=== PATIENT | female | born 1990 | race Caucasian/White ===

== ENCOUNTER 2019-11-09 09:55 | Inpatient (IN) | payer SELFPAY ==
[2019-11-09] VITALS (15 sets, daily range): BP systolic 93–113; BP diastolic 43–86; PULSE 60–80; RESP 15–18; TEMP 36.3–37.2; O2SAT 95–99; BMI 24.6
[2019-11-09] MEDS: Lactated Ringers 1,000 ML 999 ML IV (10:15)
[2019-11-09 10:40] LABS: Absolute Lymphocyte Count 1.73 X10^3/uL (0.83-4.51); Absolute Neutrophil Count 4.9 X10^3/uL (2.0-7.7); Basophil# 0.03 X10^3/uL; Basophil% 0.4 % (0-1); Eosinophil# 0.03 X10^3/uL; Eosinophils% 0.4 % (0-5); Hematocrit 36.4 % (37-47); Hemoglobin 13.3 g/dL (12.0-15.0); Lymphocyte # 1.73 X10^3/ul (4.0); Lymphocyte % 23.9 % (19-41); Mean Corp Hgb Conc 36.5 g/dL (32-36); Mean Corpuscular Hgb 33.3 pg (27.0-32.0); Mean Corpuscular Volume 91.2 fL (81-99); Mean Platelet Vol. 9.9 fl (6.2-12.0); Monocyte# 0.53 X10^3/uL; Monocyte% 7.3 % (0-10); NRBC Flagged by Analyzer 0 % (0-5); Neutrophil # 4.88 X10^3/uL (2.7-7.7); Neutrophil % 67.4 % (47-70); Platelet Count 289 K/mm3 (150-450); RBC Distribution Width CV 12.7 % (11.6-14.6); RBC Distribution Width SD 41.5 fl (35.1-43.9); Red Blood Count 3.99 M/mm3 (4.2-5.4); White Blood Count 7.2 K/mm3 (4.4-11.0)
[2019-11-09] MEDS: Sodium Citrate/Citric Acid 30 ML UDC PO (11:48)
[2019-11-09] MEDS: Lactated Ringers 1,000 ML 150 ML IV (11:49)
[2019-11-09] MEDS: Cefazolin 2 GM in 0.9% Normal Saline 100 ML IV (12:13)
--- NOTE | 2019-11-09 13:16 | PCM.HP.OB ---
History Date of Admission: 11/09/19 Final PEPE: 11/16/19 Gestational age: 39 Weeks and 0 Days History of this : This is a 29 year-old, G [], P [], at 39 weeks gestational age. Surgical History: Surgical History (Last Updated 11/09/19 @ 13:[address] Eli Hoang MD) Hx laparoscopic cholecystectomy Z90.49 Previous section Z98.891 Allergies No Known Allergies Allergy (Verified 11/28/15 18:27) Home Medications: Home Medications Laura [place]/Linoleic/Gamoleni [Evening [place] 1,000 mg Sftg] 1,000 mg PO BID 11/09/19 L.acidoph,Paracasei, B.lactis [Probiotic] 1 ea PO QODAY 11/09/19 Vits [Prenatabs FA] 1 tab PO DAILY 11/09/19 Smoking Status: Never smoker Alcohol: None Number of Fetus(es): 1 History Past Pregnancies: Past Pregnancies Delivery Date Name GA/ Weeks Outcome Route Wt Sex Labor Length Anesthesia Delivery Location Provider FOB Labs: See [facility] H[facility] Physical Exam Vitals: Vital Signs Pulse BP 71 107/62 11/09/19 11:16 11/09/19 11:16 General: Alert, Oriented x3 Abdomen: Soft, Non Tender, Non-Distended Neurological: Cranial nerves II-XII grossly intact INSTRUCTIONAL DESIGN CONSULTANT: Normal external genitalia Estimated gestational size: Appropriate for gestational size Assessment/Plan All Active Problems Abdominal pain (Acute) Pancreatitis (Ruled-out) This is a 29 year-old, G2, P1001, at 39 weeks gestational age. Admit to L&D Proceed with repeat Routine care
--- NOTE | 2019-11-09 13:20 | PCM.OPRPT ---
Report of Operation Surgery/Procedure Performed:: Repeat section Description of Surgical Findings:: Bicornuate uterus, normal adnexa Delivery Classification: Scheduled Final PEPE: 11/16/19 Gestational age: 39 Weeks and 0 Days sulfonation equipment operator: Matthew Underwood Type of Anesthesia:: Spinal Date of Procedure: 11/09/19 Pre-Operative Diagnosis: (1) Prior section (2) Bicornuate uterus Post-Operative Diagnosis: Same Indications for : Repeat Elective Description of Procedure: Patient taken to OR where spinal anesthesia was placed. She was prepped and draped in the normal sterile fashion in a dorsal supine position with a leftward tilt. After ensuring adequacy of anesthesia the Pfannensteil skin incision was made and carried through to the underlying fascia with a scalpel. The fascia was incised in the midline and carried laterally with the Talamantes scissors. The rectus muscles were in the midline and the peritoneum was entered bluntly. The bladder flap was dissected down carefully with the Metzenbaum scissors and blunt dissection. The uterus was incised in a transverse fashion and then incision extended with cephalocaudad traction. The fetus was vertex and the head was elevated to the uterine incision. With fundal pressure the head delivered. head was gently guided to allow delivery of anterior and posterior shoulders. No excess traction placed on head. Body delivered and 3VC clamped & cut in delayed fashion. Then the infant was handed off to the waiting RN. The placenta was delivered with gentle traction and fundal massage and the uterus was exteriorized and cleared of all clots and debris. The uterine incision was closed with 1 vicryl suture in a running locked fashion. The bovie was used to further obtain further hemostasis of the uterine incision. A second imbricating layer of monocryl was placed. The uterus was returned to the peritoneal cavity. The pelvis was irrigated & then cleared of all clots and debris. The uterine incision was examined and found to be hemostatic. Some asa was placed over the uterine incision due to the denuded areas. The fascia was closed with looped PDS suture in a running standard. The subcutaneous tissue was examined & any bleeding bovie cauterized. The subcutaneous tissue was reapproximated. The skin was closed in a subcuticular fashion by the MILK AND CREAM GRADER with me present in the labor and delivery suite. I performed the remainder of the procedure w/ assistance. Amniotic Membrane Rupture Type: Artificial Amniotic Fluid Description: Clear Placenta Disposition: [facility] Drain: [place] to straight drain Fluids Replaced: 1100ml Cord Entanglement: None Cord Vessel Description: 3 Vessels Esitmated Blood Loss (ml): 700ml Gender: Male - Jose; weight = 7-6 (1 minute): 9 (5 minute): 9 Delayed cord clamping: Yes Antibiotic Given: Ancef 2 grams IV x1 Complications: None - Admit VTE Documentation VTE Present on Admission: No
[2019-11-09] MEDS: Oxytocin 30 units/NS 500 ml 30 UNITS/500 ML IV.SOLN 167 UNITS IV (13:30)
[2019-11-09] MEDS: Lactated Ringers 1,000 ML 100 ML IV (14:43)
[2019-11-09] MEDS: Ketorolac 30 MG/ML Syringe IV (18:17)
[2019-11-09] MEDS: 0.9% Saline Lock 10 ML Syringe IV (18:17)
[2019-11-10] VITALS (9 sets, daily range): BP systolic 91–104; BP diastolic 54–61; PULSE 72–80; RESP 14–18; TEMP 36.6–37.1; O2SAT 96–98
[2019-11-10] MEDS: Ketorolac 30 MG/ML Syringe IV ×5 (00:20→23:57)
[2019-11-10 05:41] LABS: Hematocrit 29.9 % (37-47); Hemoglobin 10.1 g/dL (12.0-15.0); Mean Corp Hgb Conc 33.8 g/dL (32-36); Mean Corpuscular Hgb 31.4 pg (27.0-32.0); Mean Corpuscular Volume 92.9 fL (81-99); Mean Platelet Vol. 9.3 fl (6.2-12.0); Platelet Count 202 K/mm3 (150-450); Red Blood Count 3.22 M/mm3 (4.2-5.4); White Blood Count 9.6 K/mm3 (4.4-11.0)
[2019-11-10 05:56] LABS: Scan Indicated on CBC? Y/N NO
--- NOTE | 2019-11-10 10:39 | PN.OBGYN_ITS ---
Subjective: Patient seen at bedside. Resting in bed skin to skin with infant. Reports feeling well, pain under control and has been ambulating in room. infant and having some issues with latching and keeping awake. Seen by yesterday and will see again today. Voiding without difficulty. No concerns to report at this time. - Physical Exam Vitals/I&O's: Vital Signs Temp Pulse Resp BP Pulse Ox 97.8 F 73 16 104/61 97 11/10/19 08:00 11/10/19 08:00 11/10/19 08:00 11/10/19 08:00 11/10/19 08:00 Oxygen Delivery Method Room Air Weight: 148 lb Body Mass Index (BMI) 24.6 Intake and Output for Last 24 Hours 11/08/19 11/09/19 11/10/19 23:59 23:59 23:59 Intake Total 3589.83 / 3589.83 1721.67 / 1721.67 Output Total 1725 / 1725 2200 / 2200 Balance 1864.83 / 1864.83 -478.33 / -478.33 General: Alert, Cooperative Oral: Moist Mucosa Neck: Supple Lungs: Normal air movement Abdomen: Bowel Sounds Present, Soft Neurological: Cranial nerves II-XII grossly intact Psych/Mental Status: Normal Affect, Appropriate Comment: Mepilax dressing dry and intact Laboratory Results 11/09/19 10:15: WBC 7.2, RBC 3.99 L, Hgb 13.3, Hct 36.4 L, MCV 91.2, MCH 33.3 H, MCHC 36.5 H, RDW Std Deviation 41.5, RDW Coeff of Norberto 12.7, Plt Count 289, MPV 9.9, Immature Gran % (Auto) 0.600, Neut % (Auto) 67.4, Lymph % (Auto) 23.9, Griggs % (Auto) 7.3, Eos % (Auto) 0.4, Baso % (Auto) 0.4, Absolute Neuts (auto) 4.9, Absolute Lymphs (auto) 1.73, Nucleated RBC % 0 11/09/19 10:15: Blood Type B NEGATIVE, Antibody Screen NEGATIVE 11/10/19 05:25: WBC 9.6, RBC 3.22 L, Hgb 10.1 L, Hct 29.9 L, MCV 92.9, MCH 31.4, MCHC 33.8 D, RDW Std Deviation 43.0, RDW Coeff of Norberto 13.0, Plt Count 202, MPV 9.3 Current Medications Acetaminophen (Tylenol) 1,000 mg PO Q8H PRN PRN Reason: Pain Score 1-3/10 Bisacodyl (Dulcolax) 10 mg RECTAL UD PRN PRN Reason: If no BM Diphenhydramine HCl (Benadryl) 25 mg PO Q6H PRN PRN PRN Reason: ITCHING Stop: 11/10/19 13:43 Hydrocortisone (Hytone) 1 applic TOPICAL TID PRN PRN; Protocol PRN Reason: Discomfort Lactated Ringer's () 1,000 mls @ 100 mls/hr IV .Q10H [facility] Last Infusion: 11/10/19 06:03 Dose: Infused Documented by: Naloxone HCl 4 mg/ Dextrose 504 mls @ 0 mls/hr IV .Q0M PRN; Protocol PRN Reason: Respiratory depression Naloxone HCl 4 mg/ Dextrose 504 mls @ 0 mls/hr IV .Q0M PRN; Protocol PRN Reason: To maintain Resp. rate >10 Ibuprofen (Motrin) 600 mg PO Q6H PRN PRN PRN Reason: Pain Score 1-3/10 Ketorolac Tromethamine (Toradol (Bkc)) 30 mg IV Q6 BRENAD Stop: 11/11/19 12:01 Last Admin: 11/10/19 06:00 Dose: 30 mg Documented by: Methylergonovine Maleate (Methergine) 0.2 mg IM X1 PRN PRN Reason: Uterine Atony Nalbuphine HCl (Nubain) 5 mg IV Q3H PRN PRN PRN Reason: ITCHING Stop: 11/10/19 13:43 Naloxone HCl (Narcan) 0.02 mg IV Q1M PRN PRN Reason: RR <10 and pt unresponsive Ondansetron HCl (Zofran) 4 mg IV Q4H PRN PRN PRN Reason: Nausea Oxycodone HCl (Oxyir) 5 - 10 mg PO Q4H PRN PRN PRN Reason: Pain Score 4-10/10 Prochlorperazine Edisylate (Compazine Iv) 10 mg IV Q6H PRN PRN PRN Reason: NAUSEA Senna/Docusate Sodium (Senokot-S, Brynn-Colace) 0 tablet PO DAILY PRN PRN Reason: Constipation Simethicone (Mylicon) 80 mg PO PCHS PRN PRN Reason: Indigestion/stomach pain Sodium Chloride () 5 - 15 ml IV UD PRN PRN Reason: SALINE FLUSH Last Admin: 11/09/19 18:17 Dose: 10 ml Documented by: Medical Necessity - Tobacco Use Smoking Status: Never smoker Assessment/Plan All Active Problems (Last Updated 11/09/19 @ 13:[address] Eli Hoang MD) Abdominal pain (Acute) Pancreatitis (Ruled-out) PPD #1, Repeat C/S Pain management support Routine care
[2019-11-10] MEDS: 0.9% Saline Lock 10 ML Syringe IV ×3 (12:09→23:58)
[2019-11-10] MEDS: Senna/Docusate Sodium 1 Tablet PO (18:19)
[2019-11-11 01:56] VITALS: BP 102/65; PULSE 68; RESP 16; TEMP 36.6
--- NOTE | 2019-11-11 04:06 | DCINST_ITS ---
Discharge Diet: No Restrictions Discharge Activity: May not drive while taking narcotic pain medications., May Shower May resume sexual activity in: 6 weeks Weight Bearing Status: Weight bearing as tolerated Call your doctor if your incision/area has: Continuous Slow Oozing, Sudden Increased Bleeding, Increased Pain/ Swelling, Increased Redness, Foul Smelling Discharge, Swelling at the incision site Suture Line Care: Avoid Pulling/Pushing Cleanse incision/area with: Soap & Water Additional Instructions: If you experience any of the following, contact your healthcare provider. * Bleeding that soaks a pad every hour for 2 hours * Fever 100.4 or higher * Unrelieved incision or abdominal pain * Swelling, redness, discharge or bleeding from your incision or epi siotomy site * Your incision begins to separate * Problems urinating (including inability to urinate or burning while urinating). * Visual changes * Severe headache * Flu-like symptoms * Pain or redness in one of both of your breasts * Pain, warmth, tenderness or swelling in your legs, especially the calf area * Frequent nausea and vomiting * Symptoms of depression or anxiety If you experience any of the following, call 911 or go to the nearest Emergency Room. * Chest pain * Problems breathing * Seizure activity * Partial or complete paralysis of a body part, slurred speech, weakness or drooping of the face, or a sudden inability to walk or hold your balance Allergies/Adverse Reactions: Allergies No Known Allergies Allergy (Verified 11/28/15 18:27) Medications to take at Discharge Laura [place]/Linoleic/Gamoleni [Evening [place] 1,000 mg Sftg] 1,000 mg PO BID 11/09/19 L.acidoph,Paracasei, B.lactis [Probiotic] 1 ea PO QODAY 11/09/19 Vits [Prenatabs FA ] 1 tab PO DAILY 11/09/19 Acetaminophen [Tylenol] 1,000 mg PO Q8H PRN tab 11/11/19 Ibuprofen [Motrin] 600 mg PO Q6H PRN PRN tab 11/11/19 Oxycodone [Oxyir] 5 mg PO Q6H PRN PRN 3 Days #12 tab 11/11/19 Senna/Docusate Sodium [Senokot-S] 1 tab PO DAILY PRN tablet 11/11/19 The following prescriptions were given: Oxycodone [Oxyir] 5 mg PO Q6H PRN PRN 3 Days #12 tab PRN Reason: Pain Score 4-10/10 Transmission Status: Received by [facility] Follow-Up: Call to make an appointment with your doctor for an incision check in 1-2 weeks. You will also need a 6 week post- follow up appointment. Test results from this visit will be discussed in further detail at your follow- up appointment, if applicable. Primary Care Physician: Rudy Blank DO [Primary Care Provider] -
--- NOTE | 2019-11-11 04:08 | PCM.PN.OB ---
Subjective: Pain controlled - Physical Exam Vitals/I&O's: Vital Signs Temp Pulse Resp BP Pulse Ox 97.9 F 68 16 102/65 96 11/11/19 01:56 11/11/19 01:56 11/11/19 01:56 11/11/19 01:56 11/10/19 16:20 Oxygen Delivery Method Room Air Weight: 148 lb Body Mass Index (BMI) 24.6 Intake and Output for Last 24 Hours 11/09/19 11/10/19 11/11/19 23:59 23:59 23:59 Intake Total 3589.83 / 3589.83 1721.67 / 1721.67 Output Total 1725 / 1725 3000 / 3000 Balance 1864.83 / 1864.83 -1278.33 / -1278.33 General: Alert, Oriented x3 Abdomen: Soft, Non Tender, Non-Distended - ff mid & below umb Extremities: No Calf Tenderness Neurological: Cranial nerves II-XII grossly intact Psych/Mental Status: Normal Affect Laboratory Results 11/10/19 05:25: WBC 9.6, RBC 3.22 L, Hgb 10.1 L, Hct 29.9 L, MCV 92.9, MCH 31.4, MCHC 33.8 D, RDW Std Deviation 43.0, RDW Coeff of Norberto 13.0, Plt Count 202, MPV 9.3 Current Medications Acetaminophen (Tylenol) 1,000 mg PO Q8H PRN PRN Reason: Pain Score 1-3/10 Bisacodyl (Dulcolax) 10 mg RECTAL UD PRN PRN Reason: If no BM Hydrocortisone (Hytone) 1 applic TOPICAL TID PRN PRN; Protocol PRN Reason: Discomfort Naloxone HCl 4 mg/ Dextrose 504 mls @ 0 mls/hr IV .Q0M PRN; Protocol PRN Reason: Respiratory depression Naloxone HCl 4 mg/ Dextrose 504 mls @ 0 mls/hr IV .Q0M PRN; Protocol PRN Reason: To maintain Resp. rate >10 Ibuprofen (Motrin) 600 mg PO Q6H PRN PRN PRN Reason: Pain Score 1-3/10 Ketorolac Tromethamine (Toradol (Bkc)) 30 mg IV Q6 BRENDA Stop: 11/11/19 12:01 Last Admin: 11/10/19 23:57 Dose: 30 mg Documented by: Methylergonovine Maleate (Methergine) 0.2 mg IM X1 PRN PRN Reason: Uterine Atony Naloxone HCl (Narcan) 0.02 mg IV Q1M PRN PRN Reason: RR <10 and pt unresponsive Ondansetron HCl (Zofran) 4 mg IV Q4H PRN PRN PRN Reason: Nausea Oxycodone HCl (Oxyir) 5 - 10 mg PO Q4H PRN PRN PRN Reason: Pain Score 4-10/10 Prochlorperazine Edisylate (Compazine Iv) 10 mg IV Q6H PRN PRN PRN Reason: NAUSEA Senna/Docusate Sodium (Senokot-S, Brynn-Colace) 0 tablet PO DAILY PRN PRN Reason: Constipation Last Admin: 11/10/19 18:19 Dose: 2 tablet Documented by: Simethicone (Mylicon) 80 mg PO PCHS PRN PRN Reason: Indigestion/stomach pain Sodium Chloride () 5 - 15 ml IV UD PRN PRN Reason: SALINE FLUSH Last Admin: 11/10/19 23:58 Dose: 10 ml Documented by: Medical Necessity - Tobacco Use Smoking Status: Never smoker Assessment/Plan All Active Problems (Last Updated 11/09/19 @ 13:[address] Eli Hoang MD) Abdominal pain (Acute) Pancreatitis (Ruled-out) POD#2 D/c home later today
[2019-11-11] MEDS: 0.9% Saline Lock 10 ML Syringe IV ×2 (05:56→11:27)
[2019-11-11] MEDS: Ketorolac 30 MG/ML Syringe IV ×2 (05:56→11:28)
[2019-11-11 08:40] VITALS: BP 95/54; PULSE 71; RESP 16; TEMP 36.7; O2SAT 96
== END 2019-11-11 12:00 | disposition home or self-care (01) | DRG 788 ==
PROVIDERS: Admitting Provider Obstetrics & Gynecology; PCP Family Medicine; Referring Provider Obstetrics & Gynecology; Visit Provider Obstetrics & Gynecology
PROC: 10D00Z1 Extraction of Products of Conception, Low, Open Approach (ICD-10-PCS; CPT 59514; principal; 2019-11-09 11:45)
DX: O34.211 Maternal care for low transverse scar from previous cesarean delivery (principal); Z37.0 Single live birth; Q51.3 Bicornate uterus; Z3A.39 39 weeks gestation of pregnancy
CPT/HCPCS: 85025; 85027; 86850; 86900; 86901; 87635; 99218; G2023; J7120; A4216; G0378; U0004

== ENCOUNTER → 2019-11-21 | Outpatient (CLI) | payer OTHER, SELFPAY ==
[2019-11-09 10:13] VITALS: BMI 24.6
== END | disposition home or self-care (01) ==
LOC: LABSPEC 10:54
PROVIDERS: PCP Family Medicine; Referring Provider Family Medicine; Visit Provider Family Medicine
DX: Z03.818 Encounter for observation for suspected exposure to other biological agents ruled out (principal)
CPT/HCPCS: 87635; G2023; U0003

== ENCOUNTER 2022-05-07 12:35 | Inpatient (IN) | payer SELFPAY, OTHER ==
[2022-05-07] VITALS (16 sets, daily range): BP systolic 91–118; BP diastolic 45–73; PULSE 60–81; RESP 14–17; TEMP 36.1–36.7; O2SAT 95–99; BMI 25.9
[2022-05-07] MEDS: Lactated Ringers 1,000 ML 999 ML IV (13:18)
[2022-05-07 13:21] LABS: Absolute Lymphocyte Count 1.73 X10^3/uL (0.83-4.51); Absolute Neutrophil Count 6.1 X10^3/uL (2.0-7.7); Basophil# 0.02 X10^3/uL; Basophil% 0.2 % (0-1); Eosinophil# 0.02 X10^3/uL; Eosinophils% 0.2 % (0-5); Hematocrit 36.3 % (37-47); Hemoglobin 12.8 g/dL (12.0-15.0); Lymphocyte # 1.73 X10^3/ul (0.83-4.51); Mean Corp Hgb Conc 35.3 g/dL (32-36); Mean Corpuscular Hgb 32.3 pg (27.0-32.0); Mean Corpuscular Volume 91.7 fL (81-99); Mean Platelet Vol. 9.4 fl (6.2-12.0); Monocyte# 0.32 X10^3/uL; Monocyte% 3.9 % (0-10); NRBC Flagged by Analyzer 0 % (0-5); Neutrophil # 6.11 X10^3/uL (2.7-7.7); Neutrophil % 74.3 % (47-70); Platelet Count 259 K/mm3 (150-450); RBC Distribution Width CV 12.5 % (11.6-14.6); RBC Distribution Width SD 41.7 fl (35.1-43.9); Red Blood Count 3.96 M/mm3 (4.2-5.4); White Blood Count 8.2 K/mm3 (4.4-11.0)
[2022-05-07] MEDS: Lactated Ringers 1,000 ML 150 ML IV (14:12)
[2022-05-07] MEDS: Acetaminophen 500 MG Tablet 1000 MG PO ×2 (14:45→21:00)
[2022-05-07] MEDS: Sodium Citrate/Citric Acid 30 ML UDC PO (14:45)
[2022-05-07] MEDS: Cefazolin 2 GM in 0.9% Normal Saline 100 ML IV (15:05)
--- NOTE | 2022-05-07 15:14 | PCM.HP.OB ---
HPI - General General Date of Admission: 05/07/22 Date of Service: 05/07/22 HPI Narrative SVITLANA VELASQUEZ, is a 32 F who presents for repeat . Maternal Data Information Final PEPE: 05/03/22 Gestational age: 40&4 PFSH [facility] Medical History Anxiety Bicornuate uterus Home Medications evening primrose oil-linoleic acid-gamolenic acid 1,000 mg capsule 1,000 mg PO BID Check with primary doctor 11/09/19 [History Last Taken 1 Day Ago ~11/08/19] vits,calcium no.78-iron fumarate-folic acid 29 mg-1 mg tablet 1 tab PO DAILY Check with primary doctor 11/09/19 [History Last Taken 1 Day Ago ~11/08/19] [place] 3 2 tab PO.IVFORM BID supplement 05/07/22 [History Last Taken Unknown] Allergy/AdvReac Type Severity Reaction Status Date / Time No Known Allergies Allergy Verified 11/28/15 18:27 Family History Son Multicystic dysplastic kidney Surgical History History of repair of hiatal hernia Hx laparoscopic cholecystectomy Previous section Social History Smoking Status: Never smoker History Elective abortions Hx Para 2 Spontaneous abortions Hx # Term Pregnancies Ectopic pregnancies Hx # Pregnancies Multiple births # of living children Vital Signs Vital Signs Vital Signs: 05/07/22 13:00 05/07/22 13:01 05/07/22 13:01 Temperature Temperature Source Temporal Pulse Rate 81 Blood Pressure 118/63 BP Systolic 118 BP Diastolic 63 Pulse Ox 05/07/22 13:01 05/07/22 13:00 Temperature 98.1 F Temperature Source Pulse Rate Blood Pressure BP Systolic BP Diastolic Pulse Ox 95 Weight Weight: 151 lb Body Mass Index (BMI) 25.9 Physical Exam Const alert and oriented x3 Resp normal respiratory effort GI soft to palpation, non-tender and non-distended Inspection: gravid Extremity normal to inspection and no calf tenderness Labs Labs Labs: Blood Type B NEGATIVE Antibody Screen NEGATIVE Hct 36.3 % (37-47) L Hgb 12.8 g/dL (12.0-15.0) Rhogam given: No See [facility] H[facility] Assessment & Plan (1) Previous section: COMMENT: @ 40&4 PLAN: Plan Admit to L&D MOD - counseled on R/B/A and patient wishes to proceed with repeat . Informed consent signed. Routine care
--- NOTE | 2022-05-07 16:25 | OP.PCM_ITS ---
Maternal Data Information Final PEPE: 05/03/22 Gestational age: 40&4 Details Operative Information Date of Procedure: 05/07/22 Pre-Operative Diagnosis: (1) Prior section Post-Operative Diagnosis: Same Indications for : Repeat Elective Indications Narrative: The patient was taken to the operating room where spinal anesthesia was placed & found to be adequate. She was prepped and draped in the dorsal supine position with a leftward tilt. A Pfannenstiel skin incision was made approximately 2 cm above the symphysis pubis and carried through to the underlying fascia with the scalpel. The fascia was incised incised in the midline and extended laterally with the Talamantes scissors. The rectus muscles were in the midline using blunt traction and the bovie due to some formation of scar tissue. The peritoneum was entered carefully and bluntly. The peritoneal incision was stretched and the bladder blade was inserted. Vesicouterine peritoneum was tented up, incised & then bladder flap created gently. The uterine incision was made in a low transverse fashion with the scalpel and extended superiorly and inferiorly with blunt dissection. The infant's head was brought to the incision in the flexed position and delivered without difficulty. The head was gently guided to allow delivery of the anterior and posterior shoulders. The body then delivered with fundal pressure in the standard fashion. The 3VC cord was clamped and cut in delayed fashion. The infant was handed off to the waiting pediatric physician assistant. The placenta was delivered with fundal massage and gentle traction in the standard fashion. The uterus was exteriorized and cleared of clots and debris. The uterine incision was closed with #1 Vicryl suture in a running locked fashion. Monocryl suture was used in an imbricating fashion. 2 additional figure of 8 sutures placed to obtain excellent hemostasis. The uterine incision was examined and was found to be hemostatic. The uterus was returned to the abdominal cavity. After irrigating Gayatri was placed over the uterine incision as some areas were denuded (but hemostatic). The peritoneum was closed with vicryl suture in running fashion The rectus muscle was examined and any bleeding was Bovie cauterized. The rectus muscle was then reapproximated using 3 figure of 8 sutures. The fascia was closed with PDS suture in a running standard fashion. The subcutaneous tissue was examining and any bleeding was Bovie cauterized. The subcutaneous tissue was reapproximated with interrupted sutures. The skin was closed in a subcuticular fashion by the RADIO TESTER while I was present in the labor & delivery unit. The remainder of the procedure was performed by me with assistance. All sponge, lap, and needle counts were correct. The patient was taken to her room for recovery in a stable condition. Classification: Scheduled Procedure Type: low transverse blocking machine tender #1: Tiffany Hickman Type of Anesthesia: Spinal Antibiotic Given: Ancef 2 grams IV x1 Drain: [place] to straight drain Estimated Blood Loss: 800ml Fluids Replaced: 1,100ml Procedure Start Time: 15:26 Procedure Stop Time: 16:29 Findings Description of Procedure: Normal maternal adnexa and bicornuate uterus Presentation: Positive for Vertex Amniotic Membrane Rupture Type: Artificial Amniotic Fluid Description: Clear Placental Delivery Description: Expressed Placenta Disposition: [facility] Cord Vessel Description: 3 Vessels Cord Entanglement: None A Gender: Male (weight = 8-8) (1 minute): 9 (5 minute): 9 Delayed Cord Clamping: Yes Complications Complications: None
[2022-05-07] MEDS: Ketorolac 30 MG/ML Syringe IV ×2 (17:04→23:01)
[2022-05-07] MEDS: Oxytocin 15 Units/NS 250ml 15 UNITS/250 ML IV.SOLN 83 UNITS IV (17:04)
[2022-05-07] MEDS: Lactated Ringers 1,000 ML 100 ML IV (19:45)
[2022-05-08] VITALS (7 sets, daily range): BP systolic 86–104; BP diastolic 43–61; PULSE 65–78; RESP 16; TEMP 36.5–36.8; O2SAT 96–99
[2022-05-08] MEDS: Enoxaparin 40 MG/0.4 ML Syringe SC (03:21)
[2022-05-08] MEDS: Acetaminophen 500 MG Tablet 1000 MG PO ×3 (03:21→18:03)
[2022-05-08] MEDS: 0.9% Saline Lock 10 ML Syringe IV ×2 (05:09→11:56)
[2022-05-08] MEDS: Ketorolac 30 MG/ML Syringe IV ×2 (05:09→11:55)
[2022-05-08 05:24] LABS: Hematocrit 28.3 % (37-47); Hemoglobin 9.9 g/dL (12.0-15.0); Mean Corpuscular Hgb 32.8 pg (27.0-32.0); Mean Corpuscular Volume 93.7 fL (81-99); Mean Platelet Vol. 9.1 fl (6.2-12.0); Platelet Count 189 K/mm3 (150-450); RBC Distribution Width CV 12.7 % (11.6-14.6); RBC Distribution Width SD 43.6 fl (35.1-43.9); Red Blood Count 3.02 M/mm3 (4.2-5.4); White Blood Count 10.2 K/mm3 (4.4-11.0)
[2022-05-08] MEDS: Senna/Docusate Sodium 1 Tablet PO (10:14)
--- NOTE | 2022-05-08 14:30 | CASEMGMT ---
SW Note Referral Source: [facility] Otolaryngology Teacher Referral Reason: Anxiety SW spoke to Italia RN caring for MOB. She reports no concerns regarding MOB or family. MOB gave verbal consent to be interviewed in the presence of the FOB who was in the room. MOB was bright and reactive during the interview. Responded appropriately to question. Smiled. Mom: Lorena Burleson PNC: MOB reported that she began her PNC at a couple of month an reported late PNC because I felt good and it was not a necessity. Control: Condoms NB: Vinh Gallardo : 05/07/22 Apgars: 02/19 Weight: 385o grams Binder Selector: [facility] Breast Feeding. MOB reports that is going good. NB was born at 40 +4 weeks UDS not completed on mother prenatally MOB's other children: Tim age 4 and Jose age 2 Housing: MOB, STEFANI and their (now) 3 children reside in a basement house. The basement is the only part of the house that was completed. Transportation:MOB reports access to transportation Supplies: FALLON reports she has carseat, clothes, diapers, crib and bassinet for the nb. Supports: FALLON reports that her sister will be staying at the house for 1 week and then her sister in law will stay with her for a couple of weeks. MOB said that both MOB and FOBehzad's family reside locally. FOB also stated that the may take time off work to assist. Education Level: FALLON said she completed 8th grade which is consistent for the [employer] [place]. 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 Employment: FALLON does not work outside the home. Agency Involvement: MOB reports no JFS, no WIC, No HMG, No counseling, no legal or no CSB issues. FOB: Geronimo Time Together:4 years Involved with the nb: FOB was noted to be holding the nb during the assessment. Employment: FOB said that he has a maintenance shop at the end of the driveway. He said that there is a possibility that he may take off work to assist with the nb if needed FOB is father to FALLON's 2 other children, son age 4 and son age 2 FOB denied MH/DV and AOD use Maternal MH History: MOB denied history of post depression or anxiety. MOB said that in 2016 she had a couple of panic attacks and believes that the panic attacks were related to her having gall bladder issues and not feeling well. MOB said that after she had gall bladder surgery and felt better she had no more panic attack. MOB and FOB educated on Shaken Baby, PPD and Safe Sleep MOB denied drug, alcohol and nicotine abuse. MOB was provided with handout on PPD resources including information on post anxiety and counseling resources. MOB reports no additional concerns or needs. SW remains available if needs arise. Plan: Home at discharge
--- NOTE | 2022-05-08 17:57 | PCM.PN.OB ---
Subjective Subjective Denies complaints Objective Data Objective Data Vital Signs: Vital Signs Temp Pulse Resp BP Pulse Ox O2 Del Method 98.1 F 72 16 104/61 96 Room Air 05/08/22 17:46 05/08/22 17:46 05/08/22 17:46 05/08/22 17:46 05/08/22 17:46 05/08/22 17:46 Oxygen Delivery Method Room Air Weight: 151 lb Body Mass Index (BMI) 25.9 Intake & Output: Intake and Output for Last 24 Hours 05/06/22 05/07/22 05/08/22 23:59 23:59 23:59 Intake Total 2172.5 / 2172.5 575 / 575 Output Total 2100 / 2100 1300 / 1300 Balance 72.5 / 72.5 -725 / -725 Lab / Micro Data Result Diagrams: 05/08/22 05:15 Labs: Laboratory Results - last 24 hr 05/08/22 05:15: WBC 10.2, RBC 3.02 L, Hgb 9.9 L, Hct 28.3 L, MCV 93.7, MCH 32.8 H, MCHC 35.0, RDW Std Deviation 43.6, RDW Coeff of Norberto 12.7, Plt Count 189, MPV 9.1 Physical Exam Const alert, oriented x3 and no apparent distress HEENT normocephalic GI soft to palpation, non-tender and non-distended GI Narrative: fundus firm, mid & below umbilicus Incision - bandage c/d/i Extremity normal to inspection and no calf tenderness Assessment & Plan (1) Previous section: COMMENT: POD#1 PLAN: Routine PP care Heme - HDS, CBC reviewed GI/ - no issues ID - AF, no signs infection
[2022-05-08] MEDS: Ibuprofen 600 MG Tablet PO (22:02)
[2022-05-09] MEDS: Acetaminophen 500 MG Tablet 1000 MG PO ×2 (01:19→07:44)
[2022-05-09 01:20] VITALS: BP 101/54; PULSE 72; RESP 16; TEMP 36.7
[2022-05-09] MEDS: Ibuprofen 600 MG Tablet PO ×2 (03:41→09:48)
[2022-05-09 07:47] VITALS: BP 93/53; PULSE 70; RESP 16; TEMP 36.7; O2SAT 98
--- NOTE | 2022-05-09 09:25 | PCM.PN.OB ---
Subjective Subjective Denies complaints Objective Data Objective Data Vital Signs: Vital Signs Temp Pulse Resp BP Pulse Ox O2 Del Method 98.0 F 70 16 93/53 L 98 Room Air 05/09/22 07:47 05/09/22 07:47 05/09/22 07:47 05/09/22 07:47 05/09/22 07:47 05/09/22 07:47 Oxygen Delivery Method Room Air Weight: 151 lb Body Mass Index (BMI) 25.9 Intake & Output: Intake and Output for Last 24 Hours 05/07/22 05/08/22 05/09/22 23:59 23:59 23:59 Intake Total 2172.5 / 2172.5 575 / 575 Output Total 2100 / 2100 1300 / 1300 Balance 72.5 / 72.5 -725 / -725 Lab / Micro Data Result Diagrams: 05/08/22 05:15 Physical Exam Const alert, oriented x3 and no apparent distress HEENT normocephalic GI soft to palpation, non-tender and non-distended GI Narrative: fundus firm, mid & below umbilicus Incision - bandage c/d/i Extremity normal to inspection and no calf tenderness Assessment & Plan (1) Previous section: COMMENT: POD#2 PLAN: Discharge home
--- NOTE | 2022-05-09 09:27 | PCM.DC ---
Discharge Instructions Diet Discharge Diet: No restrictions Activity Discharge Activity: May Shower May resume sexual activity in: 6 weeks Weight Bearing Status: Weight bearing as tolerated Dressing / Incision Call your doctor if your incision/area has: Continuous Slow Oozing, Sudden Increased Bleeding, Increased Pain/ Swelling, Increased Redness, Foul Smelling Discharge and Swelling at the incision site Call your doctor if you observe: Fever of 101 or Higher, Coldness, Increased Pain, Change in Color, Inability to urinate, Inability to have a bowel movement, Using more than 1 pad per hour, Shortness of breath, Dizziness, Fainting spells, Chest pain, Increased palpitations (irregular heartbeat), Calf discomfort and Uncontrolled pain Suture Line Care: Avoid Pulling/Pushing and Avoid Pinching/Bending Remove Dressing in: 1 week Cleanse incision/area with: Soap & Water Follow Up Care Please Follow Up With: Eli Hoang MD When: Follow up in 2 and 6 weeks for visits. Test Results: Test results from this visit will be discussed in further detail at your follow-up appointment, if applicable. Discharge Plan Admission Admit Date/Time: 05/07/22 12:35 Primary Reason for Your Visit: section Attending Provider: Eli Hoang Primary Care Provider: Dilan Moe Discharge Orders/Prescriptions Prescriptions: New acetaminophen 500 mg Tablet 1,000 mg PO Q6H Qty: 0 0RF ibuprofen 600 mg Tablet 600 mg PO Q6H Qty: 0 0RF Continued joann wckw-kltvzzrq-kerypuydg ac 1,000 MG capsule 1,000 mg PO BID vit,[id number]-xgseo 1 TABLET tablet 1 tab PO DAILY [place] 3 2 tab PO.IVFORM BID Referrals / Follow Up: Dilan Moe DO [Primary Care Provider] - Disposition Disposition (needs filled in before D/C Order can be placed): Home, Self Care
[2022-05-09] MEDS: Senna/Docusate Sodium 1 Tablet PO (09:47)
[2022-05-09] MEDS: Enoxaparin 40 MG/0.4 ML Syringe SC (09:49)
--- NOTE | 2022-05-09 11:46 | NURSING ---
Reviewed an agreed w/ C. Antwan's charting
== END 2022-05-09 11:20 | disposition home or self-care (01) | DRG 788 ==
PROVIDERS: Admitting Provider Obstetrics & Gynecology; PCP Family Medicine; Visit Provider Obstetrics & Gynecology
DX: O34.219 Maternal care for unspecified type scar from previous cesarean delivery (principal); Z37.0 Single live birth; Z3A.40 40 weeks gestation of pregnancy
CPT/HCPCS: 59025; 59050; 85025; 85027; 86850; 86900; 86901; 99218; 99251; J7120; A4216; G0378; G0463; J2405

== ENCOUNTER 2023-11-25 05:10 | Inpatient (IN) | payer OTHER, SELFPAY ==
[2023-11-25] VITALS (17 sets, daily range): BP systolic 93–111; BP diastolic 56–77; PULSE 54–82; RESP 16–18; TEMP 36.1–36.8; O2SAT 97–100
[2023-11-25] MEDS: Acetaminophen 500 MG Tablet 1000 MG PO ×3 (05:58→18:00)
[2023-11-25] MEDS: Lactated Ringers 1,000 ML 999 ML IV (05:59)
[2023-11-25] MEDS: Sodium Citrate/Citric Acid 30 ML UDC PO (05:59)
[2023-11-25 06:04] LABS: Absolute Lymphocyte Count 1.74 X10^3/uL (0.83-4.51); Absolute Neutrophil Count 6.5 X10^3/uL (2.0-7.7); Basophil# 0.03 X10^3/uL; Basophil% 0.3 % (0-1); Eosinophil# 0.04 X10^3/uL; Eosinophils% 0.5 % (0-5); Hematocrit 34.5 % (37-47); Hemoglobin 12.1 g/dL (12.0-15.0); Lymphocyte # 1.74 X10^3/ul (0.83-4.51); Lymphocyte % 19.8 % (19-41); Mean Corp Hgb Conc 35.1 g/dL (32-36); Mean Corpuscular Hgb 32.8 pg (27.0-32.0); Mean Corpuscular Volume 93.5 fL (81-99); Mean Platelet Vol. 9.6 fl (6.2-12.0); Monocyte# 0.42 X10^3/uL; Monocyte% 4.8 % (0-10); NRBC Flagged by Analyzer 0 % (0-5); Platelet Count 213 K/mm3 (150-450); RBC Distribution Width CV 12.6 % (11.6-14.6); Red Blood Count 3.69 M/mm3 (4.2-5.4); White Blood Count 8.8 K/mm3 (4.4-11.0)
[2023-11-25 06:41] LABS: Syphilis Antibodies Non-reactive
[2023-11-25] MEDS: Lactated Ringers 1,000 ML 150 ML IV (06:47)
--- NOTE | 2023-11-25 07:26 | HP.PCM.OB_ITS ---
HPI - General General Date of Admission: 11/25/23 Date of Service: 11/25/23 HPI Narrative SVITLANA VELASQUEZ, is a 33 F who presents for repeat . Maternal Data Information Final PEPE: 12/02/23 Gestational age: 39 [address] [facility] Medical History Hepatitis Bicornuate uterus Anxiety Home Medications ?Medication ?Instructions ?Recorded ?Last Taken ?Type evening primrose oil-linoleic 1,000 mg PO BID Check with primary 11/09/19 1 Day Ago History acid-gamolenic acid 1,000 mg doctor ~11/08/19 capsule vits,calcium no.78-iron 1 tab PO DAILY Check with primary 11/09/19 1 Day Ago History fumarate-folic acid 29 mg-1 mg doctor ~11/08/19 tablet [place] 3 2 tab PO.IVFORM BID supplement 05/07/22 Unknown History acetaminophen 500 mg tablet 1,000 mg (2 x 500 mg) PO Q6H #0 05/09/22 Unknown Rx tabs ibuprofen 600 mg tablet 600 mg PO Q6H #0 tabs 05/09/22 Unknown Rx Allergy/AdvReac Type Severity Reaction Status Date / Time No Known Allergies Allergy Verified 11/28/15 18:27 Family History Son Multicystic dysplastic kidney Family History no significant family his Surgical History (Updated 11/25/23 @ 07:[address] Eli Hoang MD) Previous section History of repair of hiatal hernia Hx laparoscopic cholecystectomy Previous section Social History Smoking Status: Never smoker History Elective abortions Hx Para 3 Spontaneous abortions Hx # Term Pregnancies Ectopic pregnancies Hx # Pregnancies Multiple births # of living children Vital Signs Vital Signs Vital Signs: 11/25/23 05:49 Temperature 98 F Temperature Source Temporal Pulse Rate 72 Respiratory Rate 16 Blood Pressure 111/73 Blood Pressure Mean 85 Blood Pressure Source Monitor Blood Pressure Position Semi-Fowlers Blood Pressure Location Right Arm Pulse Ox 100 Oxygen Delivery Method Room Air Weight Weight: 152 lb Labs Labs Labs: Blood Type B NEGATIVE Antibody Screen NEGATIVE Hct 34.5 % (37-47) L Hgb 12.1 g/dL (12.0-15.0) Syphilis Total Ab Non-reactive Rhogam given: No Assessment & Plan (1) Previous section: COMMENT: 39 weeks PLAN: Plan Admit to L&D MOD - counseled on R/B/A. Informed consent signed. Proceed with repeat c- section.
[2023-11-25] MEDS: Cefazolin 2 GM in 0.9% Normal Saline (100mL Bag) 100 ML IV (07:28)
--- NOTE | 2023-11-25 08:43 | EX.PCM.OBRPT ---
Maternal Data Information Final PEPE: 12/02/23 Gestational age: 39 weeks Details Operative Information Date of Procedure: 11/25/23 Pre-Operative Diagnosis: (1) Prior section Post-Operative Diagnosis: Same Indications for : Repeat Elective Indications Narrative: The patient was taken to the operating room where spinal anesthesia was placed & found to be adequate. She was prepped and draped in the dorsal supine position with a leftward tilt. A Pfannenstiel skin incision was made approximately 2 cm above the symphysis pubis and carried through to the underlying fascia with the scalpel. The fascia was incised incised in the midline and extended laterally with the Talamantes scissors. The rectus muscles were in the midline and the peritoneum was entered carefully and bluntly. The peritoneal incision was stretched and the bladder blade was inserted. Vesicouterine peritoneum was tented up, incised & then bladder flap created gently. There was a uterine window on the right side. Thus the uterine incision was made bluntly. It was extended superiorly and inferiorly with blunt dissection. The infant's head was brought to the incision in the flexed position and delivered without difficulty. The head was gently guided to allow delivery of the anterior and posterior shoulders. The body then delivered with fundal pressure in the standard fashion. The 3VC cord was clamped and cut in delayed fashion. The was handed off to the waiting pediatric dental hygienist. The placenta was delivered with fundal massage and gentle traction in the standard fashion. The uterus was exteriorized and cleared of clots and debris. The uterine incision was closed with #1 Vicryl suture in a running locked fashion. Monocryl suture was used in an imbricating fashion. The incision was examined and was found to be hemostatic. The uterus was returned to the abdominal cavity. After irrigating Gayatri was placed over the uterine incision as some areas were denuded (but hemostatic). The rectus muscle was examined and any bleeding was Bovie cauterized. The fascia was closed with PDS suture in a running standard fashion. The subcutaneous tissue was examining and any bleeding was Bovie cauterized. The subcutaneous tissue was reapproximated with interrupted sutures. The skin was closed in a subcuticular fashion by the PROOFSHEET CORRECTOR while I was present in the labor & delivery unit. The remainder of the procedure was performed by me with assistance. All sponge, lap, and needle counts were correct. The patient was taken to her room for recovery in a stable condition. assisted with all of the surgery including delivery of the and closure. Would consider future at 38 weeks due to uterine window. Classification: Scheduled Procedure Type: low transverse medical office receptionist assistant #1: Melba Orellana Type of Anesthesia: Spinal Antibiotic Given: Ancef 2 grams IV x1 Drain: [place] to straight drain Estimated Blood Loss: 800ml Fluids Replaced: 1500ml Procedure Start Time: 07:47 Procedure Stop Time: 08:31 Findings Description of Procedure: Normal maternal uterus and adnexa Presentation: Positive for Vertex Amniotic Membrane Rupture Type: Artificial Amniotic Fluid Description: Clear Placental Delivery Description: Expressed Placenta Disposition: [facility] Cord Vessel Description: 3 Vessels Cord Entanglement: None Infant A Gender: Female (Madyson, weight = 8-3) (1 minute): 8 (5 minute): 9 Delayed Cord Clamping: Yes
[2023-11-25] MEDS: Oxytocin 15 Units/NS 250ml 15 UNITS/250 ML IV.SOLN 83 UNITS IV (09:00)
[2023-11-25] MEDS: Ketorolac 30 MG/ML Syringe IV ×3 (10:26→21:56)
[2023-11-25] MEDS: Lactated Ringers 1,000 ML 100 ML IV (11:51)
[2023-11-25] MEDS: Senna/Docusate Sodium 1 Tablet PO (11:54)
[2023-11-25] MEDS: 0.9% Saline Lock 10 ML Syringe IV ×2 (15:54→21:56)
[2023-11-26 00:06] VITALS: BP 90/67; PULSE 64; RESP 16; TEMP 36.4; O2SAT 97
[2023-11-26] MEDS: Acetaminophen 500 MG Tablet 1000 MG PO ×3 (00:10→12:00)
[2023-11-26 04:09] VITALS: BP 96/65; PULSE 70; RESP 16; TEMP 36.5; O2SAT 97
[2023-11-26] MEDS: 0.9% Saline Lock 10 ML Syringe IV (04:14)
[2023-11-26] MEDS: Ketorolac 30 MG/ML Syringe IV (04:14)
[2023-11-26 04:28] LABS: Hematocrit 29.2 % (37-47); Hemoglobin 10.1 g/dL (12.0-15.0); Mean Corp Hgb Conc 34.6 g/dL (32-36); Mean Corpuscular Hgb 32.8 pg (27.0-32.0); Mean Corpuscular Volume 94.8 fL (81-99); Mean Platelet Vol. 9.4 fl (6.2-12.0); Platelet Count 171 K/mm3 (150-450); RBC Distribution Width CV 12.9 % (11.6-14.6); RBC Distribution Width SD 44.2 fl (35.1-43.9); Red Blood Count 3.08 M/mm3 (4.2-5.4); White Blood Count 8.8 K/mm3 (4.4-11.0)
[2023-11-26 08:24] VITALS: BP 101/69; PULSE 69; RESP 18; TEMP 36.6; O2SAT 95
--- NOTE | 2023-11-26 10:29 | NURSING ---
0824-dressing replaced d/t the lt side rolled up
[2023-11-26] MEDS: Senna/Docusate Sodium 1 Tablet PO (10:42)
[2023-11-26] MEDS: Ibuprofen 600 MG Tablet PO (10:42)
--- NOTE | 2023-11-26 11:11 | PCM.PN.OB ---
Subjective Subjective Denies complaints Objective Data Objective Data Vital Signs: Vital Signs Temp Pulse Resp BP Pulse Ox O2 Del Method 97.8 F 69 18 101/69 95 Room Air 11/26/23 08:24 11/26/23 08:24 11/26/23 08:24 11/26/23 08:24 11/26/23 08:24 11/26/23 08:24 Oxygen Delivery Method Room Air Weight: 152 lb Intake & Output: Intake and Output for Last 24 Hours 11/24/23 11/25/23 11/26/23 23:59 23:59 23:59 Intake Total 6764.87 / 6764.87 Output Total 6100 / 6100 Balance 664.87 / 664.87 Lab / Micro Data 11/26/23 04:20 Labs: Laboratory Results - last 24 hr 11/26/23 04:20: WBC 8.8, RBC 3.08 L, Hgb 10.1 L, Hct 29.2 L, MCV 94.8, MCH 32.8 H, MCHC 34.6, RDW Std Deviation 44.2 H, RDW Coeff of Norberto 12.9, Plt Count 171, MPV 9.4 Physical Exam Const alert, oriented x3 and no apparent distress HEENT normocephalic GI soft to palpation, non-tender and non-distended GI Narrative: fundus firm, mid & below umbilicus Incision - bandage c/d/i Extremity normal to inspection and no calf tenderness Assessment & Plan (1) Delivery by section: COMMENT: POD#1 PLAN: Heme - HDS, CBC reviewed GI/ - no issues D/c home per patient request
--- NOTE | 2023-11-26 11:12 | PCM.DC.SUM ---
Providers Date of Admission: 11/25/23 Primary Care Physician: Dr. Dilan Moe DO Reason For Visit: REPEAT C SECTION Diagnosis Discharge Diagnosis (1) Delivery by section: Status: Acute Plan: Heme - HDS, CBC reviewed GI/ - no issues D/c home per patient request Medications at Discharge Home Medications evening primrose oil-linoleic acid-gamolenic acid 1,000 mg capsule 1,000 mg PO BID Check with primary doctor 11/09/19 vits,calcium no.78-iron fumarate-folic acid 29 mg-1 mg tablet 1 tab PO DAILY Check with primary doctor 11/09/19 [place] 3 2 tab PO.IVFORM BID supplement 05/07/22 acetaminophen 500 mg tablet 1,000 mg (2 x 500 mg) PO Q6H #0 tabs 11/26/23 ibuprofen 600 mg tablet 600 mg PO Q6H #0 tabs 11/26/23 oxycodone 5 mg capsule 5 mg PO Q8H PRN pain 2 days #6 caps 11/26/23 Hospital Course Operations section Summary of Care Provided Minutes Spent on Discharge: 15 Weight / BMI Weight Weight: 152 lb ABG / Lab / Microbiology Data 11/26/23 04:20 Laboratory: Laboratory Results - last 24 hr 11/26/23 04:20: WBC 8.8, RBC 3.08 L, Hgb 10.1 L, Hct 29.2 L, MCV 94.8, MCH 32.8 H, MCHC 34.6, RDW Std Deviation 44.2 H, RDW Coeff of Norberto 12.9, Plt Count 171, MPV 9.4 D/C Instructions Discharge Diet: No restrictions Discharge Activity: May Shower May resume sexual activity in: 6 weeks Weight Bearing Status: Weight bearing as tolerated Call your doctor if your incision/area has: Continuous Slow Oozing, Sudden Increased Bleeding, Increased Pain/ Swelling, Increased Redness, Foul Smelling Discharge and Swelling at the incision site Call your doctor if you observe: Fever of 101 or Higher, Coldness, Increased Pain, Change in Color, Inability to urinate, Inability to have a bowel movement, Using more than 1 pad per hour, Shortness of breath, Dizziness, Fainting spells, Chest pain, Increased palpitations (irregular heartbeat), Calf discomfort and Uncontrolled pain Suture Line Care: Avoid Pulling/Pushing and Avoid Pinching/Bending Remove Dressing in: 1 week Cleanse incision/area with: Soap & Water Please Follow Up With: Eli Hoang MD When: Follow up in 2 and 6 weeks for visits. Meaningful Use Info Meaningful Use Meaningful Use Diagnoses (Choose all that apply): None applicable Ischemic Stroke Statin Dosing Therapy Reference: STATIN DOSE THERAPY REFERENCE: * Patients > 75 years receive moderate or high dose statin therapy. * Patients 75 years or YOUNGER should receive HIGH intensity statin dose unless contraindicated. You will be required to document reason for non-treatment if statin daily dose does not meet guidelines. HIGH DOSE STATIN THERAPY DAILY Atorvastatin > than or = to 40 mg Rosuvastatin > than or = to 20 mg Amlodipine + Atorvastatin > than or = to 2.5/40 mg Ezetimibe + Simvastatin 10/80 mg Simvastatin 80mg Discharge Plan Admission Admit Date/Time: 11/25/23 05:10 Attending Provider: Eli Hoang Primary Care Provider: Dilan Moe Discharge Orders/Prescriptions Prescriptions: New acetaminophen 500 mg Tablet 1,000 mg PO Q6H Qty: 0 0RF ibuprofen 600 mg Tablet 600 mg PO Q6H Qty: 0 0RF oxycodone 5 mg capsule 5 mg PO Q8H MDD 15mg PRN (Reason: pain) 2 Days Qty: 6 0RF Rx Instructions: for pain Continued joann wwtq-suzmxvtk-agerzbnkc ac 1,000 MG capsule 1,000 mg PO BID vit,[id number] 1 TABLET tablet 1 tab PO DAILY [place] 3 2 tab PO.IVFORM BID Discontinued acetaminophen 500 mg Tablet 1,000 mg PO Q6H Qty: 0 0RF ibuprofen 600 mg Tablet 600 mg PO Q6H Qty: 0 0RF Referrals / Follow Up: Dilan Moe DO [Primary Care Provider] - Disposition Disposition (needs filled in before D/C Order can be placed): Home, Self Care
--- NOTE | 2023-11-26 11:18 | CASEMGMT ---
Social Work Assessment Labor and Delivery Unit Patient Address: [address] [place] [address] Phone number: [phone] Date of Referral: 11/25/23 Time of Referral:? 1229 Referred By: Eli Hoang Date of Intervention: ??11/26/23 Time of Intervention:? 1030 Reason for Referral:? hx anxiety Sw completed chart review and acknowledges social work consult due to maternal history of anxiety. Sw presented to bedside and introduced self to mother of baby (MOB- Lorena) and father of baby (FOB- Geronimo). Sw explained reason for sw involvement and completed psychosocial assessment. History obtained from: medical records, MOB and FOB Household composition: Currently residing in the family home is MOB, FOBehzad, their three older children (Jose, Vinh and Malgorzata) and baby when ready for discharge. No concerns with current housing at this time. Patient's parent/guardian status:? ?FOB states that they have been together for 8 years. FOB states that they met each other after both residing and being a part of the [facility] community. No reports or concerns of domestic violence or intimate partner violence. Medical History: FALLON is 33 year old female who is 4, apra 3- now 4 following labor and delivery of . FALLON received routine care during with [facility]. FALLON presented to hospital on 11/25/23 for scheduled repeat at 39 weeks gestation. Baby girl, named Constance, was born weighing 8lb 3oz with an of 9. MOB states that she is breast feeding and this is going well. Baby will be followed by Dr. Gilmer Sarabia for pediatrics. ? Educational Status:? Parents completed the 8th grade which is common for [facility] culture. No concerns with reading or comprehension noted. Financial Status: STEFANI is gainfully employed outside of the home. FOB states that he works for an equipment repair shop. Infant Supplies:?? Parents have all necessary baby supplies, including: car seat, safe sleep space, clothes, diapers and wipes. Childcare/Caregiver(s):? MOB will be the primary caregiver to baby along with FOB when he is not working. Transportation:?? Parents typically get where they need to go via horse any buggy. When they have to go further distances or have doctor appointments they use a commercial front load driver. Programs/Agencies Involved: ???Parents are not connected to any resources that help them financially. Children Services/Legal Issues:??? No history of children services involvement. No issues or concerns warranting referral to be made at this time. Behavioral Health Issues: ??Mental Health History:?FOB denies mental health diagnoses/ history. MOB states that she did have anxiety in the past. MOB states that she had a hiatal hernia, but got it repaired. MOB states that prior to the repair she would have a lot of anxiety due to pain that it caused. ?? Substance Use History:?Parents deny substance use? Family History:?Parents deny family history of substance use and significant mental health diagnoses. ? Drug Screens: ?No drug screens observed in chart review. ? Family/Social Stressors:? Parents deny any issues, concerns or stressors at this time. Support Systems: MOB states that FOB and both sets of grandparents are all supportive. Depression/Shaken Baby/Safe Sleeping:? Sw educated parents on signs and symptoms of baby blues and depression and anxiety. Parents express understanding. Sw educated parents on shaken baby prevention and ABCs of safe sleep. Parents express understanding. ASSESSMENT:? MOB and baby admitted following labor and delivery of . MOB quiet but answered questions asked by social work. FOB also contributed to completion of assessment and answered questions. Parents have obtained all necessary baby items and have natural supports in place. MOB states she has not struggled with anxiety for several years, did not have any symptoms after the delivery of her other children. MOB states that she has heard the terms baby blues and depression./ anxiety but has never experienced them. PLAN:? MOB and baby to be discharged when medically ready. ?No other services requested or indicated. Shelbi Vazquez, HAIRSPRING VIBRATOR, TRUCK SPOTTER
[2023-11-26 12:47] VITALS: BP 102/64; PULSE 68; RESP 16; TEMP 36.7; O2SAT 98
--- NOTE | 2023-11-30 14:41 | NURSING ---
follow up phone call made, no answer, voicemail left
== END 2023-11-26 14:00 | disposition home or self-care (01) | DRG 788 ==
PROVIDERS: Admitting Provider Obstetrics & Gynecology; PCP Family Medicine; Visit Provider Obstetrics & Gynecology
PROC: 10D00Z1 Extraction of Products of Conception, Low, Open Approach (ICD-10-PCS; CPT 59514; principal; 2023-11-25 07:00)
DX: O34.219 Maternal care for unspecified type scar from previous cesarean delivery (principal); Z37.0 Single live birth; Z3A.39 39 weeks gestation of pregnancy
CPT/HCPCS: 59050; 85025; 85027; 86780; 86850; 86900; 86901; 99221; J7120; A4216; G0378

== ENCOUNTER → 2023-11-28 | Day surgery (SDC) | payer SELFPAY, OTHER | END | disposition home or self-care (01) | PROVIDERS: PCP Family Medicine; Referring Provider Anesthesiology; Visit Provider Anesthesiology | PROC: 3E0R3GC Introduction of Other Therapeutic Substance into Spinal Canal, Percutaneous Approach (ICD-10-PCS; CPT 62273; principal; 2023-11-28 13:55) | DX: O89.4 Spinal and epidural anesthesia-induced headache during the puerperium (principal) | CPT/HCPCS: 62273; J7120 ==

== ENCOUNTER 2023-12-02 11:19 | Emergency (ER) | payer OTHER, SELFPAY ==
[2023-12-02 11:20] VITALS: BP 114/74; PULSE 71; RESP 16; TEMP 36.4; O2SAT 97; BMI 23.1
--- NOTE | 2023-12-02 11:28 | EX.ED.DYSGE1 ---
HPI <LUCA Evans - Last Filed: 12/02/23 16:40> History of Present Illness Chief Complaint: Weakness Narrative Narrative: 33-year-old female had a delivery with epidural on 11/26/2023 at [facility] with Dr. Angeli Hoang. She was discharged home the next day and developed a headache and had a blood patch on 11/27. She states this resolved her headache but over the last 2 days she has had chills, a low backache and feels weakness in both feet. She describes as both of her feet feeling tired. She is able to walk without difficulty. She has no bladder or bowel dysfunction. PFS <LUCA Evans - Last Filed: 12/02/23 16:40> [facility] Medical History (Updated 12/02/23 @ 16:32 by LUCA Evans) Hepatitis Bicornuate uterus Anxiety Home Medications ?Medication ?Instructions ?Recorded ?Last Taken ?Type evening primrose oil-linoleic 1,000 mg PO BID Check with primary 11/09/19 1 Day Ago History acid-gamolenic acid 1,000 mg doctor ~11/08/19 capsule vits,calcium no.78-iron 1 tab PO DAILY Check with primary 11/09/19 1 Day Ago History fumarate-folic acid 29 mg-1 mg doctor ~11/08/19 tablet [place] 3 2 tab PO.IVFORM BID supplement 05/07/22 Unknown History acetaminophen 500 mg tablet 1,000 mg (2 x 500 mg) PO Q6H #0 11/26/23 Unknown Rx tabs ibuprofen 600 mg tablet 600 mg PO Q6H #0 tabs 11/26/23 Unknown Rx oxycodone 5 mg capsule 5 mg PO Q8H PRN pain 2 days #6 caps 11/26/23 Unknown Rx Allergy/AdvReac Type Severity Reaction Status Date / Time No Known Allergies Allergy Verified 12/02/23 11:22 Family History Son Multicystic dysplastic kidney Family History no significant family his Surgical History (Updated 12/02/23 @ 16:32 by LUCA Evans) Previous section History of repair of hiatal hernia Hx laparoscopic cholecystectomy Previous section Social History Smoking Status: Never smoker ROS <LUCA Evans - Last Filed: 12/02/23 16:40> ROS ED ROS Narrative Constitutional: Positive for chills. Negative for fever. CVS: Negative for chest pain. Respiratory: Negative for shortness of breath. GI: Negative for abdominal pain, nausea, vomiting. Musc: Negative for joint pain, swelling. EXAM <LUCA Evans - Last Filed: 12/02/23 16:40> Physical Exam Narrative Exam Narrative: CONST: Patient sitting in no acute distress. EYES: Normal inspection. NECK: Normal inspection. RESP: No respiratory distress, CTAB. CVS: Regular rate and rhythm, no murmur, no gallop. Back: Normal inspection, no midline tenderness, mild tenderness bilateral lumbar muscles. No bruising edema or erythema. SKIN: Color normal, no rash, warm, dry, intact. EXTREMITIES: Normal appearance of lower extremities with full range of motion. No edema or calf tenderness. 5/5 bilateral hip flexion and knee flexion/extension, 3/5 weakness in dorsiflexion bilaterally, 5/5 plantarflexion. Normal sensation, 2+ DP pulses. Normal gait. NEURO: Alert and answering questions appropriately. PSYCH: Normal affect. Const Vital Signs: 12/02/23 11:20 12/02/23 11:30 12/02/23 13:03 Temperature 97.5 F L Temperature Source Temporal Pulse Rate 71 88 Respiratory Rate 16 18 Respiratory Pattern Normal Blood Pressure 114/74 92/68 Blood Pressure Mean 87 76 Pulse Ox 97 98 Oxygen Delivery Method Room Air Room Air <Dr. Ritchie Muir MD - Last Filed: 12/02/23 12:52> Physical Exam Const Vital Signs: 12/02/23 11:20 12/02/23 11:30 12/02/23 13:03 Temperature 97.5 F L Temperature Source Temporal Pulse Rate 71 88 Respiratory Rate 16 18 Respiratory Pattern Normal Blood Pressure 114/74 92/68 Blood Pressure Mean 87 76 Pulse Ox 97 98 Oxygen Delivery Method Room Air Room Air MDM <LUCA Evans - Last Filed: 12/02/23 16:40> MDM MDM Narrative Medical decision making narrative: History from: Patient and spouse Differential: Epidural abscess, bleed Patient had a recent epidural and and subsequent blood patch presenting with sensation of fatigue and weakness in both feet. She has symmetric dorsiflexion weakness, otherwise neurovascularly intact. Seen and BMP are unremarkable. MRI spine shows no acute findings. I am not sure of the etiology of her symptoms but she is able to stand and ambulate down the hallway with no difficulty she can be discharged and follow-up with her physician. Return precautions discussed. I have personally performed a face to face assessment of the patient and have reviewed the KOMAL Note. I performed a substantive portion of the visit including all aspects of the following. My gerber findings include: History is [33-year-old female complaining of lower back pain and weakness to her legs. History of a recent then developed post epidural headaches and needed a blood patch. Denies any bowel or bladder incontinence. Denies any fever. Denies any lower extremity numbness. States her legs just feel weak.] Exam is [well-appearing 33-year-old female vital signs stable afebrile. at bedside. H EENT exam unremarkable. Neck nontender. Lungs clear. Heart regular rhythm rate about 70 no murmur. Abdomen soft nontender. Normal bowel sounds without peritoneal signs. Recent horizontal clinically appears to be healing well. No redness. Moves all 4 extremities. Normal 5 out of 5 office auditor strength. Her lower extremities she has pretty good plantarflexion or dorsiflexion bilaterally seems weak. But it is symmetrical. She has normal medial thigh sensation. She can ambulate she has trouble lifting either leg off the bed she can do it is just weak. There is no obvious cauda equina. Her back she has puncture peterson from her prior epidural and blood patch but there is no swelling. There is no redness or warmth. Neurologically she is awake and alert. She has mild bilateral weakness to lifting both legs and dorsiflexion. However she can walk from her room all the way to the bathroom without any difficulty.] Medical Decision Making [33-year-old status post epidural blood patch lower extremity weakness. Screening labs and plain MRI of the lumbar spine.] Other additions or changes: [None] Lab Data Labs: Laboratory Results - last 24 hr 12/02/23 12:00 WBC 7.7 RBC 4.22 Hgb 13.8 Hct 39.5 MCV 93.6 MCH 32.7 H MCHC 34.9 RDW Std Deviation 42.9 RDW Coeff of Norberto 12.6 Plt Count 375 MPV 9.0 Immature Gran % (Auto) 0.600 Neut % (Auto) 65.9 Lymph % (Auto) 25.7 Mayes % (Auto) 4.4 Eos % (Auto) 2.6 Baso % (Auto) 0.8 Absolute Neuts (auto) 5.1 Absolute Lymphs (auto) 1.98 Nucleated RBC % 0 Sodium 140 Potassium 3.9 Chloride 106 Carbon Dioxide 22.0 Anion Gap 12 BUN 10 Creatinine 0.49 L Estim Creat Clear Calc 143.65 Est GFR (MDRD) Af Amer 188 Est GFR (MDRD) Non-Af 155 BUN/Creatinine Ratio 20.3 H Glucose 93 Calcium 8.9 Radiography Diagnostic Testing: Clinical Impression(s) from Imaging Studies Lumbar Spine MRI 12/02/23 11:36 IMPRESSION: Normal lumbar spine. As above. Electronically Signed: Alex Dsouza MD at 16:28 EDT , <Dr. Ritchie Muir MD - Last Filed: 12/02/23 12:52> [facility] [place] MDM Narrative Medical decision making narrative: I have personally performed a face to face assessment of the patient and have reviewed the KOMAL Note. I performed a substantive portion of the visit including all aspects of the following. My gerber findings include: History is [33-year-old female complaining of lower back pain and weakness to her legs. History of a recent then developed post epidural headaches and needed a blood patch. Denies any bowel or bladder incontinence. Denies any fever. Denies any lower extremity numbness. States her legs just feel weak.] Exam is [well-appearing 33-year-old female vital signs stable afebrile. at bedside. H EENT exam unremarkable. Neck nontender. Lungs clear. Heart regular rhythm rate about 70 no murmur. Abdomen soft nontender. Normal bowel sounds without peritoneal signs. Recent horizontal clinically appears to be healing well. No redness. Moves all 4 extremities. Normal 5 out of 5 office auditor strength. Her lower extremities she has pretty good plantarflexion or dorsiflexion bilaterally seems weak. But it is symmetrical. She has normal medial thigh sensation. She can ambulate she has trouble lifting either leg off the bed she can do it is just weak. There is no obvious cauda equina. Her back she has puncture peterson from her prior epidural and blood patch but there is no swelling. There is no redness or warmth. Neurologically she is awake and alert. She has mild bilateral weakness to lifting both legs and dorsiflexion. However she can walk from her room all the way to the bathroom without any difficulty.] Medical Decision Making [33-year-old status post epidural blood patch lower extremity weakness. Screening labs and plain MRI of the lumbar spine.] Other additions or changes: [None] History & Record Review Discussion w/independent historian: Patient and Family Lab Data Attestation: I reviewed the patient's lab results. Lab results narrative: CBC normal. White count 7. H&H 13 and 39. Platelets 375. Electrolytes normal. Gap 12. Normal BUN of 10 creatinine 0.49. Glucose 93. Labs: Laboratory Results - last 24 hr 12/02/23 12:00 WBC 7.7 RBC 4.22 Hgb 13.8 Hct 39.5 MCV 93.6 MCH 32.7 H MCHC 34.9 RDW Std Deviation 42.9 RDW Coeff of Norberto 12.6 Plt Count 375 MPV 9.0 Immature Gran % (Auto) 0.600 Neut % (Auto) 65.9 Lymph % (Auto) 25.7 Mayes % (Auto) 4.4 Eos % (Auto) 2.6 Baso % (Auto) 0.8 Absolute Neuts (auto) 5.1 Absolute Lymphs (auto) 1.98 Nucleated RBC % 0 Sodium 140 Potassium 3.9 Chloride 106 Carbon Dioxide 22.0 Anion Gap 12 BUN 10 Creatinine 0.49 L Estim Creat Clear Calc 143.65 Est GFR (MDRD) Af Amer 188 Est GFR (MDRD) Non-Af 155 BUN/Creatinine Ratio 20.3 H Glucose 93 Calcium 8.9 Radiography Diagnostic Testing: Clinical Impression(s) from Imaging Studies Lumbar Spine MRI 12/02/23 11:36 IMPRESSION: Normal lumbar spine. As above. Electronically Signed: Alex Dsouza MD at 16:28 EDT , Discharge Plan Triage Chief Complaint: Weakness ED Midlevel Provider: Liz Duncan ED Provider: Ritchie Muir Dx/Rx/DC Orders Clinical Impression: Previous section, Bilateral leg weakness Instructions: ED Weakness (Uncertain Cause) Prescriptions: No Action joann [id number] ac 1,000 MG capsule 1,000 mg PO BID vit,[id number] 1 TABLET tablet 1 tab PO DAILY [place] 3 2 tab PO.IVFORM BID acetaminophen 500 mg Tablet 1,000 mg PO Q6H Qty: 0 0RF ibuprofen 600 mg Tablet 600 mg PO Q6H Qty: 0 0RF oxycodone 5 mg capsule 5 mg PO Q8H MDD 15mg PRN (Reason: pain) 2 Days Qty: 6 0RF Rx Instructions: for pain Primary Care Provider: Gilmer Sarabia Referrals: Dilan Moe, DO [Non-Staff] - Activity Restrictions/Additional Instructions: The MRI of your lumbar spine appears normal. I am not sure what is causing your symptoms. 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 Print Language: Upper Sorbian Disposition Disposition: Home, Self Care
--- NOTE | 2023-12-02 11:36 | MRI_ITS ---
EXAM: MR LUMBAR SPINE WITHOUT INTRAVENOUS CONTRAST CLINICAL INDICATION: bilateral leg weakness s/p epidural TECHNIQUE: Multiplanar and multisequence MR images of the lumbar spine without intravenous contrast. COMPARISON: No relevant prior studies available. FINDINGS: VERTEBRAE: Normal. Vertebral body heights are preserved. Normal vertebral bodies and posterior elements. No spondylolisthesis. There is preservation of the normal lumbar lordosis. SPINAL CORD: Normal. Normal position and signal intensity of the conus medullaris. SOFT TISSUES: Normal. KIDNEYS AND URETERS: Bilateral hydronephrosis and hydroureter likely related to recent . REPRODUCTIVE: Enlarged uterus consistent with state. DISCS/SPINAL CANAL/NEURAL FORAMINA: L1-L2: Normal. Normal disc height and morphology. Normal spinal canal and lateral recesses. Normal neuroforamina. L2-L3: Normal. Normal disc height and morphology. Normal spinal canal and lateral recesses. Normal neuroforamina. L3-L4: Normal. Normal disc height and morphology. Normal spinal canal and lateral recesses. Normal neuroforamina. L4-L5: Normal. Normal disc height and morphology. Normal spinal canal and lateral recesses. Normal neuroforamina. L5-S1: Normal. Normal disc height and morphology. Normal spinal canal and lateral recesses. Normal neuroforamina. MRI/Spine Lumbar (Routine) IMPRESSION: Normal lumbar spine. As above. Electronically Signed: Alex Dsouza MD at 16:28 EDT ,
[2023-12-02 12:12] LABS: Absolute Lymphocyte Count 1.98 X10^3/uL (0.83-4.51); Absolute Neutrophil Count 5.1 X10^3/uL (2.0-7.7); Basophil# 0.06 X10^3/uL; Basophil% 0.8 % (0-1); Eosinophils% 2.6 % (0-5); Hematocrit 39.5 % (37-47); Hemoglobin 13.8 g/dL (12.0-15.0); Lymphocyte # 1.98 X10^3/ul (0.83-4.51); Lymphocyte % 25.7 % (19-41); Mean Corp Hgb Conc 34.9 g/dL (32-36); Mean Corpuscular Hgb 32.7 pg (27.0-32.0); Mean Corpuscular Volume 93.6 fL (81-99); Monocyte# 0.34 X10^3/uL; Monocyte% 4.4 % (0-10); NRBC Flagged by Analyzer 0 % (0-5); Neutrophil # 5.08 X10^3/uL (2.7-7.7); Neutrophil % 65.9 % (47-70); Platelet Count 375 K/mm3 (150-450); RBC Distribution Width CV 12.6 % (11.6-14.6); RBC Distribution Width SD 42.9 fl (35.1-43.9); Red Blood Count 4.22 M/mm3 (4.2-5.4); White Blood Count 7.7 K/mm3 (4.4-11.0)
[2023-12-02 12:23] LABS: Anion Gap 12 (5-15); BUN 10 mg/dL (7-18); BUN/Creat Ratio 20.3 RATIO (10-20); Calcium,Total 8.9 mg/dL (8.5-10.1); Chloride 106 mmol/L (98-107); Creatinine, Serum 0.49 mg/dL (0.55-1.02); EST Glomerular Filtration Rate 155 mL/min (>60); Est Glom Filt Rate - Afr Amer 188 mL/min (>60); Estimated Creatinine Clearance 143.65 ml/min; Glucose 93 mg/dL (74-106); Potassium 3.9 mmol/L (3.5-5.1); Sodium Level 140 mmol/L (136-145)
[2023-12-02 13:03] VITALS: BP 92/68; PULSE 88; RESP 18; O2SAT 98
[2023-12-02 16:43] VITALS: BP 110/68; PULSE 81; RESP 18; TEMP 36.6; O2SAT 98
== END 2023-12-02 16:44 | disposition home or self-care (01) ==
PROVIDERS: Physician Assistant; Emergency Provider Emergency Medicine; PCP Physician Assistant; Visit Provider Emergency Medicine
DX: R53.1 Weakness (principal)
CPT/HCPCS: 72148; 80048; 85025; 99282; A4216